=== PATIENT | female | born 1990 | race Two or more races ===

== ENCOUNTER 2019-12-18 09:16 | Inpatient (IN) | payer MEDICAID ==
--- NOTE | 2019-12-14 14:45 | Pre-op HX & Phy Repo 2 SIG ---
DATE OF ADMISSION: 12/18/2019 PREOPERATIVE HISTORY AND PHYSICAL SCHEDULED FOR SURGERY: 12/18/2019 HISTORY OF PRESENT ILLNESS: The patient is a 29-year-old female in overall good health with breast cancer. The patient underwent genetic testing, which was negative. She was seen by Oncology who stated after evaluation that the patient declined neoadjuvant treatment and preferred to proceed with lumpectomy. The patient is scheduled to undergo left breast partial mastectomy with left axillary lymph node biopsy. PAST MEDICAL HISTORY: MEDICATIONS: None. ALLERGIES: None. OPERATIONS: Left breast biopsy in 2018. REVIEW OF SYSTEMS: She is 3, para 3. She has regular menstrual periods. PHYSICAL EXAMINATION: GENERAL: The patient is 5 feet 6 inches, 205 pounds. VITAL SIGNS: Within normal limits. HEENT: Within normal limits. LUNGS: Clear. HEART: Regular rhythm. BREASTS: Breasts are moderately large and ptotic. Right breast unremarkable. Left breast has a palpable mass in the upper outer quadrant midway between the areola and the periphery measuring approximately 2 x 3 cm. There is no palpable axillary, supraclavicular lymphadenopathy on either side. ABDOMEN: Soft. PELVIC AND RECTAL: Per primary care. EXTREMITIES: Without edema. NEUROLOGIC: Physiologic. IMPRESSION: Invasive ductal carcinoma, left breast. PLAN: Left breast partial mastectomy and left axillary lymph node biopsy. I had a complete discussion with the patient regarding the nature of the surgery, indications, alternatives, options, and risks including bleeding, infection, neuritis or neuralgia, scarring or distortion of the breast and/or nipple, need for additional procedures including possibly surgery including radiation, chemotherapy or hormonal therapy based on final pathology. All questions have been answered. The patient understands and agrees to proceed. Sahil Hamilton M.D. DR: Layla JOB#: [id number] CC: [id number]
[2019-12-15 10:12] LABS: BASOPHILS % (AUTO) 1.5 % (0.0-2.0); HEMATOCRIT 34.2 % (37.0-47.0); HEMOGLOBIN 10.8 G/DL (12.0-16.0); LYMPHOCYTES % (AUTO) 40.5 % (20.0-45.0); MEAN CORPUSCULAR VOLUME 89 FL (80-99); MONOCYTES % (AUTO) 6.9 % (1.0-10.0); PLATELET COUNT 230 K/UL (150-450); RED BLOOD COUNT 3.86 M/UL (4.20-5.40); RED CELL DISTRIBUTION WIDTH 12.3 % (11.6-14.8); WHITE BLOOD COUNT 4.8 K/UL (4.8-10.8)
[2019-12-15 10:18] LABS: ANION GAP 9 mmol/L (5-15); BLOOD UREA NITROGEN 11 mg/dL (7-18); CALCIUM 8.6 MG/DL (8.5-10.1); CARBON DIOXIDE 27 MMOL/L (21-32); CHLORIDE 103 MMOL/L (98-107); CREATININE 0.9 MG/DL (0.55-1.30); POTASSIUM 3.8 MMOL/L (3.5-5.1); SODIUM 139 MMOL/L (136-145)
[2019-12-15 10:20] LABS: BILIRUBIN, URINE NEGATIVE (NEGATIVE); COLOR,URINE PALE YELLOW; GLUCOSE, URINE (UA) NEGATIVE (NEGATIVE); KETONES,URINE NEGATIVE (NEGATIVE); LEUKOCYTE ESTERASE ,URINE 3+ (NEGATIVE); NITRITE,URINE POSITIVE (NEGATIVE); PH,URINE 6 (4.5-8.0); PROTEIN,URINE NEGATIVE (NEGATIVE); UROBILINOGEN,URINE NORMAL MG/DL (0.0-1.0)
[2019-12-15 10:29] LABS: APPEARANCE,URINE CLOUDY
[~2019-12-18] VITALS: Ht 165.1 cm; Wt 94.0 kg
[2019-12-18] VITALS (14 sets, daily range): BP systolic 96–117; BP diastolic 54–77
[2019-12-18] MEDS ORDERED: Midazolam 2mg/2ml Inj ONE (09:55)
[2019-12-18] MEDS ORDERED: fentaNYL 100 mcg/2 mL IV ONE (09:55)
[2019-12-18] MEDS ORDERED: Lidocaine 1% MPF 10mg/ml 5ml ONE (10:02)
[2019-12-18] MEDS ORDERED: Sodium Chloride 10ml vial INJ ONE ×2 (10:25→11:48)
[2019-12-18] MEDS ORDERED: ePHEDrine 50mg/ml Inj ONE (10:25)
--- NOTE | 2019-12-18 10:44 | Pre-Procedure Note/Attestation ---
Pre-Procedure Note/Attestation Complete Prior to Procedure Planned Procedure: left Procedure Narrative: left breast partial mastectomy and left axillary lymph node biopsy Indications for Procedure Pre-Operative Diagnosis: invasive ductal carcinoma left breast Attestation I attest that I discussed the nature of the procedure; its benefits; risks and complications; and alternatives (and the risks and benefits of such alternatives ), prior to the procedure, with the patient (or the patient's legal tax representative). I attest that, if there was a reasonable possibility of needing a blood transfusion, the patient (or the patient's legal tax representative) was given the [facility] standardized written summary, pursuant to the Dewayne Radha Blood Safety Act ([place] Health and Safety Code # 1645, as amended). I attest that I re-evaluated the patient just prior to the surgery and that there has been no change in the patient's H&P, except as documented below:none Sahil Hamilton MD Dec 18, 2019 10:44
[2019-12-18] MEDS ORDERED: Bacitracin 50000 Units Vial ONE (10:48)
[2019-12-18] MEDS ORDERED: NeoSporin Gu Irrig 1ml Amp IRRIG ONE (10:48)
[2019-12-18] MEDS ORDERED: LR 1000ml ONE (11:00)
[2019-12-18] MEDS ORDERED: NS Irrig 1000ml ONE (11:00)
[2019-12-18] MEDS ORDERED: Sterile Water Irrig 1000ml IRRIG ONE (11:00)
[2019-12-18] MEDS ORDERED: TransDerm Scop 1.5mg/72HR Patch TDERMAL ONE ×2 (11:03→11:45)
--- NOTE | 2019-12-18 11:42 | Anethesia Preoperative Eval ---
Anesthesia Pre-op PMH/ROS General Date of Evaluation: Dec 18, 2019 Time of Evaluation: 10:56 Anesthesiologist: Chela ASA Score: ASA 2 Mallampati Score Class I : Soft palate, uvula, fauces, pillars visible Class II: Soft palate, uvula, fauces visible Class III: Soft palate, base of uvula visible Class IV: Only hard plate visible Mallampati Classification: Class II Surgeon: Alfonso Diagnosis: L breast CA Surgical Procedure: L breast partial mastectomy Anesthesia History: none Family History: no anesthesia problems Allergies: Coded Allergies: No Known Allergies (Unverified , 12/15/19) Medications: see eMAR Patient NPO?: Yes Past Medical History Cardiovascular: Denies: HTN, CAD, [place], valve dz, arrhythmia, other Pulmonary: Denies: asthma, COPD, LISA, other Gastrointestinal/Genitourinary: Reports: GERD; Denies: CRI, ESRD, other Neurologic/Psychiatric: Reports: depression/anxiety; Denies: dementia, CVA, TIA, other Endocrine: Denies: DM, hypothyroidism, steroids, other HEENT: Denies: cataract (L), cataract (R), glaucoma, METLAKATLA (L), METLAKATLA (R), other Hematology/Immune: Denies: anemia, DVT, bleeding disorder, other Musculoskeletal/Integumentary: Denies: OA, RA, DJD, DDD, edema, other Other: other - overweight PMH Narrative: as above PSxH Narrative: L breast excisional Bx. Anesthesia Pre-op Phys. Exam Physician Exam Last Vital Signs Date Time Temp Pulse Resp B/P (MAP) Pulse Ox O2 Delivery O2 Flow Rate FiO2 12/18/19 10:28 Room Air 12/18/19 10:13 97.8 66 18 104/54 (71) 100 Constitutional: NAD Neurologic: CN 2-12 intact Cardiovascular: RRR, no M/R/G Respiratory: CTA Gastrointestinal: S/NT/ND Airway Exam Mallampati Score: Class II MO: full Neck: flexible ROM: full Teeth: intact Dentures: no upper, no lower Anesthesia Pre-op A/P Labs see chart Urine Test Test 12/18/19 09:25 Urine HCG, Qualitative Negative (NEGATIVE) Studies Pre-op Studies: EKG - NSR Risk Assessment & Plan Assessment: ASA 2 Plan: GA with LMA PONV prevention Status Change Before Surgery: No Pre-Antibiotics Drug: Ancef 1gr. Given Within 1 Hr of Incision: Yes Time Given: 11:25 Eleuterio York MD Dec 18, 2019 11:42
[2019-12-18] MEDS ORDERED: LR 1000ml 1,000 ML IVLG SCH (11:43)
[2019-12-18] MEDS ORDERED: Midazolam 2mg/2ml Inj IVP PRN (11:45)
[2019-12-18] MEDS ORDERED: Metoclopramide 10mg/2ml Inj IVP PRN ×2 (11:45→12:45)
[2019-12-18] MEDS ORDERED: DiphenhydrAMINE 50mg/ml Inj IVP PRN (11:45)
[2019-12-18] MEDS ORDERED: Meperidine 25mg/0.5ml Inj (FOR RIGORS ONLY) IV PRN (11:45)
[2019-12-18] MEDS ORDERED: Ketorolac 30mg Inj IV PRN (11:45)
[2019-12-18] MEDS ORDERED: Morphine Sulfate 10mg/ml Inj ONE (11:48)
[2019-12-18] MEDS ORDERED: Ketorolac 30mg Inj ONE (11:49)
--- NOTE | 2019-12-18 12:41 | Brief Operative Note ---
Immediate Post Operative Note Operative Note Pre-op Diagnosis: invasive ductal carcinoma left breast Procedure: left breast partial mastectomy and left axillary lymph node biopsy Post-op Diagnosis: same Post-op Diagnosis: same as pre-op Findings: consistent w/pre-op dx studies Surgeon: rizwana Anesthesiologist: nathalia Anesthesia: general Specimen: yes - left breast cancer. left axillary lymph nodes Complications: none Condition: stable Fluids: see anesthesia record Estimated Blood Loss: minimal Drains: SINDY Implant(s) used?: No Sahil Hamilton MD Dec 18, 2019 12:41
--- NOTE | 2019-12-18 12:46 | Immediate Post-Op Evaluation ---
Immediate Post-Op Evalulation Immediate Post-Op Evalulation Procedure: L breast partial mastectomy with axillary l/n dissection Date of Evaluation: Dec 18, 2019 Time of Evaluation: 12:45 IV Fluids: 1000 Blood Products: none` Estimated Blood Loss: <50 Urinary Output: none Blood Pressure Systolic: 116 Blood Pressure Diastolic: 64 Pulse Rate: 72 Respiratory Rate: 20 O2 Sat by Pulse Oximetry: 99 Temperature (Fahrenheit): 98.1 Pain Score (1-10): 1 Nausea: No Vomiting: No Complications none Patient Status: reacts, patent, none Hydration Status: adequate Eleuterio York MD Dec 18, 2019 12:46
--- NOTE | 2019-12-18 13:51 | 48 Hour Post Anesthesia Eval ---
Post Anesthesia Evaluation Procedure: L breast partial mastectomy with axillary l/n dissection Date of Evaluation: Dec 18, 2019 Time of Evaluation: 13:50 Blood Pressure Systolic: 109 0: 63 Pulse Rate: 74 Respiratory Rate: 13 Temperature (Fahrenheit): 98.6 O2 Sat by Pulse Oximetry: 100 Airway: patent Nausea: No Vomiting: No Pain Intensity: 2 Hydration Status: adequate Cardiopulmonary Status: Stable Mental Status/LOC: patient returned to baseline Follow-up Care/Observations: 0 Post-Anesthesia Complications: 0 Follow-up care needed: N/A Carlos Sanbaria MD Dec 18, 2019 13:51
--- NOTE | 2019-12-18 14:00 | Operative Note - Dictated ---
DATE OF OPERATION: 12/18/2019 SURGEON: Sahil Hamilton MD. MANAGER MALL: None. ANESTHESIOLOGIST: Eleuterio York MD. TYPE OF ANESTHESIA: General endotracheal. PREOPERATIVE DIAGNOSIS: Invasive ductal carcinoma, left breast. POSTOPERATIVE DIAGNOSIS: Invasive ductal carcinoma, left breast. OPERATION PERFORMED: Left breast partial mastectomy and left axillary lymph node biopsy. DESCRIPTION OF PROCEDURE: The patient was taken to the operating room and under general anesthesia with sequential compression device stockings in place, she was prepped and draped in usual fashion. She had a nearly 4 cm mass in the upper outer quadrant of the left breast located under a prior biopsy scar from 2 years ago. A curvilinear incision was made excising in elliptical fashion the scar overlying the mass. The flaps were dissected circumferentially. A wide resection was performed achieving hemostasis with cautery and including the pectoralis fascia. The specimen was oriented with suture markers superior and medial, the skin marking anterior. The tissue was given to the pathologist who determined that the inferior margin was closed. Additional inferior margin tissue was resected. Again, achieving hemostasis with cautery. The field was irrigated with sterile water and hemostasis carefully achieved. The incision was closed with interrupted 2-0 Vicryl deep dermal subcutaneous sutures followed by continuous 4-0 Monocryl subcuticular suture. A left axillary vertical incision was made achieving hemostasis with cautery and incising the clavipectoral fascia. somewhat enlarged lymph glands were identified and were resected using the Thunderbeat vessel sealing electrosurgical device preserving the nerves. The specimen was given to pathology to confirm the presence of a least 3 significant lymph nodes. The field was irrigated with sterile water and hemostasis carefully achieved with cautery. Through a separate stab incision inferolaterally, a large flat Yogi-Hewitt was placed into the axilla and sutured to the skin with a 2-0 nylon skin suture. The clavipectoral fascia was closed with interrupted 3-0 Vicryl, subcutaneous tissues closed with interrupted 3-0 Vicryl and the skin closed with continuous 4-0 Monocryl subcuticular suture. Mastisol and half-inch Steri-Strips were applied to both incisions followed by dry sterile dressings. Final sponge and needle counts were correct. The patient tolerated the procedure well and left the operating room in good condition. Don Alena Hamilton DR: Layla JOB#: [id number] CC:
[2019-12-18] MEDS: D5 1/2NS w/KCl 20mEq 1,000 ML IV SCH (15:30)
[2019-12-18] MEDS: HYDROmorphone 1mg/ml Carpuject SUBQ PRN (15:40)
[2019-12-18] MEDS: ceFAZolin sod 1 GM in D5W 55 ML IV SCH (19:43)
[2019-12-19] VITALS: BP 102/51
[2019-12-19] MEDS: HYDROmorphone 1mg/ml Carpuject SUBQ PRN ×3 (00:24→17:20)
[2019-12-19] MEDS: ceFAZolin sod 1 GM in D5W 55 ML IV SCH (03:35)
[2019-12-19] MEDS: D5 1/2NS w/KCl 20mEq 1,000 ML IV SCH ×2 (03:37→17:40)
[2019-12-19 04:00] VITALS: BP 90/51
[2019-12-19 08:00] VITALS: BP 101/60
--- NOTE | 2019-12-19 08:49 | General Progress Note ---
Progress Note Progress Note AVSS Had pain and nausea post-op and overnight. left breast and axilla incisions clean and dry with intact steristrips. Mild swelling of breast Imp: Pain and nausea Plan: continue in-patient care continue IV fluids until able to eat; ambulate TID teach patient care of Sahil Neri MD Dec 19, 2019 08:49
[2019-12-19 12:00] VITALS: BP 98/60
[2019-12-19 16:00] VITALS: BP 96/59
[2019-12-19 20:00] VITALS: BP 107/65
[2019-12-19] MEDS: HYDROcodone/Acetamin 5/325 tab ORAL PRN (21:36)
[2019-12-20] VITALS: BP 93/57
[2019-12-20] MEDS: HYDROcodone/Acetamin 5/325 tab ORAL PRN ×2 (03:59→08:54)
[2019-12-20 04:02] VITALS: BP 97/61
[2019-12-20 08:00] VITALS: BP 112/65
--- NOTE | 2019-12-20 08:29 | General Progress Note ---
Progress Note Progress Note AVSS Nausea resolved, pain controlled with [place] left breast and axilla healing nicely SINDY 10cc serosang Imp: Improved Plan: discharge with supplies and SINDY drain f/u office 12/25 Rx [place] 5/325 #30 Instructions/limitations/supplies discussed/provided Sahil Hamilton MD Dec 20, 2019 08:29
[2019-12-20] MEDS ORDERED: NORCO 5-325 TA1 EAC1 ORAL (08:35)
--- NOTE | 2019-12-22 13:22 | Discharge Summary ---
Discharge Summary Hospital Course Date of Admission Dec 18, 2019 at 13:30 Date of Discharge Dec 20, 2019 at 10:50 Admitting Diagnosis Invasive ductal carcinoma, left breast. Reason for Hospitalization: Elective surgery ALOK Shields is a 29 year old female who was admitted on Dec 18, 2019 at 13:30 for Invasive ductal carcinoma, left breast. Patient was admitted for elective surgery Procedures s/p 12/18/[address] Hamilton Left breast partial mastectomy and left axillary lymph node biopsy Hospital Course status post surgery course of recovery uneventful initially IV fluids s/p perioperative antibiotics neurovascular status closely monitored, stable left breast and axilla incisions clean and dry with intact steri strips. pain management was addressed , and pain was controlled remained hemodynamically stable ambulated antiemetics were on board as needed tolerated diet ; IV fluids discontinued voided freely patient was taught how to care for SINDY drain, output was closely monitored bowel regimen instituted patient was stable for discharge patient was discharged with supplies and SINDY drain follow up in the office 12/25 prescription for [place] 5/325 #30 provided instructions/limitations/supplies discussed/provided pathology report at the time of this dictation still pending DISCHARGE DIAGNOSES Invasive ductal carcinoma, left breast. s/p Left breast partial mastectomy and left axillary lymph node biopsy. Discharge Medications Continued Medications: Hydrocodone Bit/Acetaminophen 5-325* ([place] 5-325 Tablet*) 1 Each Tablet 1 TAB ORAL Q4H PRN for For Pain, #30 TAB (This prescription has been renewed) Discharge Condition Upon Discharge: stable Discharge Vital Signs Last Vital Signs Date Time Temp Pulse Resp B/P (MAP) Pulse Ox O2 Delivery O2 Flow Rate FiO2 12/20/19 09:24 97.8 12/20/19 09:00 Room Air 12/20/19 08:00 68 16 112/65 (81) 98 12/18/19 13:40 3 Discharge Disposition Patient was discharged home Discharge Instructions Discharge Instructions Special Instructions I have been assigned to complete a D/C Summary on this account. I was not involved in the patient management Aleja Dover NP Dec 22, 2019 13:22
== END 2019-12-20 10:50 | disposition home or self-care (01) | DRG 363 ==
LOC: SUR 09:16 → 3E 13:30
PROC: 07B60ZX Excision of Left Axillary Lymphatic, Open Approach, Diagnostic (ICD-10-PCS; 2019-12-18)
PROC: 0HBU0ZZ Excision of Left Breast, Open Approach (ICD-10-PCS; principal; 2019-12-18 11:30)
DX: C50.412 Malignant neoplasm of upper-outer quadrant of left female breast (principal); K21.9 Gastro-esophageal reflux disease without esophagitis
CPT/HCPCS: 36415; 80048; 81001; 81025; 85025; 85610; 85730; 87081; 87086; 87181; 94003; 94150; J2180; J2250; J2405; J2765; U0002